=== PATIENT | female | born 1975 | race African-American/Black ===

== ENCOUNTER 2017-08-25 18:59 | Emergency (ER) | payer MEDICAID ==
[~2017-08-25] VITALS: Ht 165.1 cm; Wt 73.0 kg
[2017-08-26] MEDS ORDERED: TETANUS, DIPHTHERIA, PERTUSSIS VAC/PF 0.5ML (>7YR OLD) IM ONE (01:15)
[2017-08-26] MEDS ORDERED: BACITRACIN ZINC OINT UDPKT TOP ONE (01:15)
[2017-08-26] MEDS ORDERED: LIDOCAINE HCL 1% 20ML VIAL (Pyxis) INJ MC ONE (01:15)
[2017-08-26] MEDS ORDERED: LIDOCAINE HCL/PF 1% 10 MG/ML 5ML VIAL IJ SCH (02:14)
[2017-08-26 03:05] VITALS: BP 139/74
== END 2017-08-26 03:07 | disposition home or self-care (01) ==
LOC: ER 08-26 01:09
DX: L02.11 Cutaneous abscess of neck (principal); Z87.891 Personal history of nicotine dependence
CPT/HCPCS: 10060; 90471; 90715; 99283; J3490; Z7610